=== PATIENT | male | born 1965 | race Caucasian/White ===

== ENCOUNTER 2018-02-22 00:42 | Emergency (ER) | payer BC, OTHER ==
[2018-02-22] MEDS ORDERED: KETOROLAC 60 MG/2 ML VIAL IM STA (00:56)
[2018-02-22] MEDS ORDERED: CYCLOBENZAPRINE 10 MG TABLET PO STA (00:56)
[2018-02-22] MEDS ORDERED: DEXAMETHASONE 10 MG/ML VIAL PO STA (00:56)
--- NOTE | 2018-02-22 01:03 | ED Physician Documentation ---
PD HPI BACK PAIN - Stated complaint Stated Complaint: BACK PAIN - Chief complaint Chief Complaint: Back Pain - History obtained from History obtained from: Patient, Family - History of Present Illness Timing - onset: How many days ago (4) Timing - details: Gradual onset, Still present Location: Lower, Right, Left Quality: Pain, Spasm, Similar to prior episodes Associated symptoms: No: Fever, Weakness, Numbness, Incontinent of urine, Unable to urinate, Hematuria Improves with: Rest, Position Worsened by: Movement, Twisting Contributing factors: Lifting, Twisting Similar symptoms before: Work up / diagnostics, Treatment Recently seen: Not recently seen - Additional information Additional information: patient is a 52 year old male with a history of chronic low back pain who is presenting to the emergency department for low back pain. Patient states that about a week ago he was lifting something up and he tweaked his back. the pain was originally on the right but it has now migrated to the left. patient states that it is similar to his previous back pain. patient denies any weakness, incontinence, retention or any other neurological symptoms. Patient denies any trauma. Review of Systems Ten Systems: 10 systems reviewed and negative Constitutional: denies: Fever, Chills GI: denies: Abdominal Pain : denies: Dysuria, Frequency, Unable to Void, Incontinent, Hematuria Musculoskeletal: reports: Back pain Neurologic: denies: Focal weakness, Numbness PD PAST MEDICAL HISTORY - Past Medical History Past Medical History: Yes Musculoskeletal: Chronic back pain - Past Surgical History Past Surgical History: No - Present Medications Home Medications: Ambulatory Orders Medication Instructions Recorded Confirmed Cyclobenzaprine [Flexeril] 10 mg PO TID PRN #10 tablet 02/22/18 Lidocaine Patch 5% [Lidoderm Patch] 1 each TOP DAILY #10 patch 02/22/18 - Allergies Allergies/Adverse Reactions: Allergies Allergy/AdvReac Type Severity Reaction Status Date / Time No Known Drug Allergies Allergy Verified 02/22/18 00:51 - Social History Does the pt smoke?: No Smoking Status: Never smoker Does the pt drink ETOH?: Yes ETOH Use: Liquor Does the pt have substance abuse?: No - Immunizations Immunizations are current?: Yes - POLST Patient has POLST: No PD ED PE NORMAL - Vitals Vital signs reviewed: Yes - General General: Alert and oriented X 3, Well developed/nourished - HEENT HEENT: Atraumatic - Cardiac Cardiac: RRR - Respiratory Respiratory: No respiratory distress - Abdomen Abdomen: Soft, Non tender, Non distended - Derm Derm: Normal color, Warm and dry, No rash - Extremities Extremities: No deformity - Neuro Neuro: Alert and oriented X 3, No motor deficit, No sensory deficit Eye Opening: Spontaneous PD ED PE EXPANDED - Back Back: Straight leg raise + L. No: Straight leg raise + R Results - Vitals Vitals: Vital Signs - 24 hr 02/22/18 02/22/18 00:46 01:50 Temperature 36.1 C L Heart Rate 67 58 L Respiratory 18 14 Rate Blood Pressure 146/100 H 129/81 H O2 Saturation 100 97 Oxygen O2 Source Room air PD MEDICAL DECISION MAKING - ED course Complexity details: reviewed old records, re-evaluated patient, considered differential, d/w patient, d/w family ED course: Patient was seen and examined at bedside. patient was well appearing with no neurological deficits. patient was treated with toradol, decadron and flexeril. patient required no imaging or further diagnostics at this time. patient was stable for discharge with outpatient follow up. Departure - Departure Disposition: 01 Home, Self Care Clinical Impression: Back pain Condition: Good Instructions: Low Back Pain Self Care Follow-Up: ABA FLORES MD [Primary Care Provider] - Tomorrow Prescriptions: Cyclobenzaprine [Flexeril] 10 mg PO TID PRN #10 tablet PRN Reason: Spasms Lidocaine Patch 5% [Lidoderm Patch] 1 each TOP DAILY #10 patch Comments: You should alternate between motrin and tylenol as needed for pain, as well as ice and heat. You can take flexeril for muscle spasm but you should not combine it with other depressants or drive or operate heavy machinery while taking it. You should follow up with your doctor if your symptoms persist. You may return to the emergency department at any time for new, worsening or uncontrollable symptoms. Discharge Date/Time: 02/22/18 01:55
[2018-02-22] MEDS ORDERED: CHERRY SYRUP 10 ML UDC PO ONE (01:08)
[2018-02-22 02:00] VITALS: BP 129/81
== END 2018-02-22 01:55 | disposition home or self-care (01) ==
LOC: ED 00:42
DX: M54.5 Low back pain (principal); G89.29 Other chronic pain
CPT/HCPCS: 96372; 99283; A9270

== ENCOUNTER 2018-09-03 09:17 | Emergency (ER) | payer BC, OTHER ==
[2018-09-03 10:03] LABS: BASOPHILS # (AUTO) 0.1 10^3/uL (0.0-0.1); BASOPHILS % (AUTO) 0.5 %; EOSINOPHILS # (AUTO) 0.3 10^3/uL (0.0-0.7); EOSINOPHILS % (AUTO) 2.4 %; HGB - HEMOGLOBIN 14.4 g/dL (14.0-18.0); LYMPHOCYTES # (AUTO) 2.3 10^3/uL (1.5-3.5); LYMPHOCYTES % (AUTO) 20.4 %; MEAN CORPUSCULAR HEMOGLOBIN 30.7 pg (27.0-31.0); MEAN CORPUSCULAR HGB CONC 34.2 g/dL (32.0-36.0); MEAN CORPUSCULAR VOLUME 89.6 fL (80.0-94.0); MEAN PLATELET VOLUME 7.6 fL (7.4-11.4); MONOCYTES # (AUTO) 1.1 10^3/uL (0.0-1.0); MONOCYTES % (AUTO) 9.5 %; NEUTROPHILS # (AUTO) 7.6 10^3/uL (1.5-6.6); NEUTROPHILS % (AUTO) 67.2 %; PLT - PLATELET COUNT 315 10^3/uL (130-450); RED BLOOD COUNT 4.71 10^6/uL (4.70-6.10); RED CELL DISTRIBUTION WIDTH 13.4 % (12.0-15.0); WHITE BLOOD COUNT 11.3 x10^3/uL (4.8-10.8)
[2018-09-03 10:17] LABS: ALBUMIN 4.6 g/dL (3.2-5.5); ALBUMIN/GLOBULIN RATIO 1.2 (1.0-2.2); BILIRUBIN,TOTAL 0.8 mg/dL (0.2-1.0); CALCIUM 9.3 mg/dL (8.5-10.3); CREATININE 1.2 mg/dL (0.6-1.2); TOTAL PROTEIN 8.4 g/dL (6.7-8.2)
--- NOTE | 2018-09-03 10:21 | XRAY Report ---
Reason: cough, cp Procedure Date: 09/03/2018 Accession Number: [id number] / [id number] Procedure: XR - Chest 2 View X-Ray CPT Code: 89097 FULL RESULT: EXAM: CHEST RADIOGRAPHY EXAM DATE: 09/03/2018 10:11 AM. CLINICAL HISTORY: Cough, cp. COMPARISON: Chest 11/25/2007. TECHNIQUE: 2 views. FINDINGS: Lungs/Pleura: No focal opacities evident. No pleural effusion. No pneumothorax. Normal volumes. Mediastinum: Heart and mediastinal contours are unremarkable. IMPRESSION: No evidence of acute thoracic process RADIA
--- NOTE | 2018-09-03 10:25 | ED Physician Documentation ---
History of Present Illness - Stated complaint Stated Complaint: COUGH/MID LF SIDE BACK PX - Chief complaint Chief Complaint: Resp - Additonal information Additional information: 53-year-old male presents the emergency department with cough, nasal congestion which has progressively worsened. The coughing is now caused the patient to have left-sided posterior rib pain which is worse now with movement and deep breaths. The patient denies chest pain, radiation of the symptoms, dyspnea on exertion, fevers or chills. The patient was sent in by the [facility] physician for evaluation of a possible pulmonary embolism. The patient's symptoms are described as moderate. No other associated symptoms. No triggering factors. The patient has noticed a productive cough with episodes of pinkish sputum. Review of Systems Constitutional: reports: Fatigue. denies: Fever Eyes: denies: Discharge Ears: denies: Ear pain Nose: reports: Congestion Cardiac: reports: Other (Left-sided posterior chest wall pain) Respiratory: reports: Cough. denies: Dyspnea, Wheezing GI: denies: Vomiting : denies: Dysuria Skin: denies: Rash Musculoskeletal: denies: Neck pain Neurologic: denies: Generalized weakness Immunocompromised: denies: Chemotherapy PD PAST MEDICAL HISTORY - Past Medical History Musculoskeletal: Chronic back pain - Past Surgical History Past Surgical History: No - Present Medications Home Medications: Ambulatory Orders Medication Instructions Recorded Confirmed Cyclobenzaprine [Flexeril] 10 mg PO TID PRN #10 tablet 02/22/18 Benzonatate [Tessalon Perle] 100 - 200 mg PO TID PRN #30 capsule 09/03/18 D-Methorphan/PE/Acetaminophen [Day 09/03/18 Multi-Symp Flu-Severe Cold] Guaifen/Phenyleph/Acetaminophn 09/03/18 [Mucinex Sinus-Max Severe Liq] Vit C/Ascorb Sod/Multivit-Min 09/03/18 [Emergen-C 500 mg Chewable Tab] - Allergies Allergies/Adverse Reactions: Allergies Allergy/AdvReac Type Severity Reaction Status Date / Time No Known Drug Allergies Allergy Verified 09/03/18 09:33 - Social History Does the pt smoke?: No Smoking Status: Never smoker Does the pt drink ETOH?: Yes Does the pt have substance abuse?: No - Immunizations Immunizations are current?: Yes - POLST Patient has POLST: No PD ED PE NORMAL - General General: Alert and oriented X 3, No acute distress - HEENT HEENT: Atraumatic, PERRL, EOMI, Ears normal - Neck Neck: Supple, no meningeal sign - Cardiac Cardiac: RRR, Strong equal pulses - Respiratory Respiratory: No respiratory distress, Clear bilaterally, Other (The patient has tenderness to palpation in the posterior chest wall, no crepitus or subcutaneous emphysema) - Abdomen Abdomen: Soft, Non tender, Non distended - Derm Derm: Normal color - Extremities Extremities: No deformity, Normal ROM s pain, No edema - Neuro Neuro: Alert and oriented X 3, Normal speech - Psych Psych: Normal affect Results - Vitals Vitals: Vital Signs - 24 hr 09/03/18 09/03/18 09:30 11:09 Temperature 36.4 C L Heart Rate 86 68 Respiratory 16 16 Rate Blood Pressure 140/84 H 137/83 H O2 Saturation 98 100 Oxygen O2 Source Room air - EKG (time done) 09:53 Rate: Rate (enter#) Rhythm: NSR Intervals: Normal KS, Prolonged QT QRS: Normal Ischemia: Normal ST segments - Labs Labs: Laboratory Tests 09/03/18 09/03/18 09/03/18 09:55 09:55 09:55 WBC 11.3 H RBC 4.71 Hgb 14.4 Hct 42.2 MCV 89.6 MCH 30.7 MCHC 34.2 RDW 13.4 Plt Count 315 MPV 7.6 Neut # (Auto) 7.6 H Lymph # (Auto) 2.3 [place] # (Auto) 1.1 H Eos # (Auto) 0.3 Baso # (Auto) 0.1 Absolute Nucleated RBC 0.00 Nucleated RBC % 0.0 D-Dimer < 200.0 L Sodium 133 L Potassium 4.1 Chloride 97 L Carbon Dioxide 27 Anion Gap 9.0 BUN 15 Creatinine 1.2 Estimated GFR (MDRD) 63 L Glucose 86 Calcium 9.3 Total Bilirubin 0.8 AST 32 ALT 58 Alkaline Phosphatase 60 Troponin I B-Natriuretic Peptide Total Protein 8.4 H Albumin 4.6 Globulin 3.8 Albumin/Globulin Ratio 1.2 Lipase 26 09/03/18 09/03/18 09:55 09:55 WBC RBC Hgb Hct MCV MCH MCHC RDW Plt Count MPV Neut # (Auto) Lymph # (Auto) [place] # (Auto) Eos # (Auto) Baso # (Auto) Absolute Nucleated RBC Nucleated RBC % D-Dimer Sodium Potassium Chloride Carbon Dioxide Anion Gap BUN Creatinine Estimated GFR (MDRD) Glucose Calcium Total Bilirubin AST ALT Alkaline Phosphatase Troponin I < 0.04 B-Natriuretic Peptide 14 Total Protein Albumin Globulin Albumin/Globulin Ratio Lipase - Rads (name of study) CXR Radiology: Final report received, See rad report PD MEDICAL DECISION MAKING - ED course ED course: The patient's symptoms seem to be more suggestive of a viral process causing irritation to the chest wall with rib strain. There is no hard evidence to suggest a bacterial process at this point, pneumonia or sepsis. The patient's symptoms are not suggestive of acute coronary syndrome. The patient's workup in the emergency department does not show any significant abnormality and currently the patient appears appropriate for ongoing outpatient management. I discussed with him the findings and plan he understands and agrees. I discussed warning signs and recommended returning to the emergency department for worsening symptoms or any concerns Departure - Departure Disposition: 01 Home, Self Care Clinical Impression: Pleurisy Condition: Good Instructions: ED Chest Pain Pleurisy Follow-Up: ABA FLORES MD [Primary Care Provider] - Within 1 week Prescriptions: Benzonatate [Tessalon Perle] 100 - 200 mg PO TID PRN #30 capsule PRN Reason: Cough Comments: Please return to the emergency department for worsening symptoms or any concerns
[2018-09-03] MEDS ORDERED: DEXAMETHASONE 10 MG/ML VIAL PO STA (10:54)
[2018-09-03] MEDS ORDERED: NAPROXEN 250 MG TABLET PO STA (10:54)
[2018-09-03] MEDS ORDERED: BENZONATATE 100 MG CAPSULE PO STA (10:54)
[2018-09-03] MEDS ORDERED: CHERRY SYRUP 10 ML UDC PO ONE (11:06)
[2018-09-03 11:11] VITALS: BP 137/83
== END 2018-09-03 11:48 | disposition home or self-care (01) ==
LOC: ED 09:17
DX: R09.1 Pleurisy (principal); R94.31 Abnormal electrocardiogram [ECG] [EKG]
CPT/HCPCS: 36415; 71046; 80053; 83690; 83880; 84484; 85025; 85379; 93005; 99283; A9270